=== PATIENT | male | born 1975 | race Two or more races ===

== ENCOUNTER 2023-10-22 17:09 | Inpatient (IN) | payer OTHER, MEDICAID ==
[2023-10-22] VITALS (15 sets, daily range): BP systolic 107–135; BP diastolic 47–74; PULSE 70–93; RESP 18–25; TEMP 99.3–100; O2SAT 95–100
[~2023-10-22] VITALS: Ht 177.8 cm; Wt 102.7 kg
[2023-10-22 17:26] LABS: Basophils # (auto) 0.1 10 ^3/uL (0-0.2); Eosinophils # (auto) 0.1 10 ^3/uL (0-0.8); Lymphocytes # (auto) 1.8 10 ^3/uL (0.4-5.4); Mean Corpuscular Hemoglobin 33.3 pg (28.0-32.0)
[2023-10-22 17:28] LABS: Basophils % (auto) 0.6 % (0.0-2.0); Eosinophils % (auto) 0.7 % (0.0-7.0); Hematocrit 34.6 % (41.0-53.0); Lymphocytes % (auto) 17.1 % (10.0-50.0); Mean Corpuscular Hgb Conc. 31.7 g/dL (32.0-36.0); Monocytes # (auto) 0.9 10 ^3/uL (0-1.3); Monocytes % (auto) 8.8 % (0.0-12.0); Neutrophils # (auto) 7.8 10 ^3/uL (1.6-8.6); Neutrophils % (auto) 72.8 % (37.0-80.0); Nucleated Red Blood Cells % 0.5 %; Red Cell Distribution Width 17.2 % (11.8-14.3); White Blood Cell 10.7 10^3/uL (4.4-10.8)
[2023-10-22 17:51] LABS: Alanine Aminotransferase 542 U/L (7-40); Albumin 3.8 g/dL (3.2-4.8); Alkaline Phosphatase 124 U/L (46-116); Anion Gap 17 (5-15); Aspartate Aminotransferase 425 U/L (13-40); BUN/Creatinine Ratio 4.4 (10.0-20.0); Blood Urea Nitrogen 38 mg/dL (9-23); Calcium 9.6 mg/dL (8.7-10.4); Carbon Dioxide 23 mmol/L (20-30); Chloride 102 mmol/L (98-107); Glucose 90 mg/dL (74-106); Magnesium 2.4 mg/dL (1.6-2.6); Potassium 5.3 mmol/L (3.5-5.1); Sodium 142 mmol/L (136-145)
[2023-10-22 17:52] LABS: Bilirubin, Total 0.5 mg/dL (0.2-1.0); Total Protein 6.9 g/dL (5.7-8.2)
[2023-10-22] MEDS: MIDAZOLAM DRIP 50 mg/50mL 50 ML IV ONE (18:32)
[2023-10-22] MEDS: MIDAZOLAM DRIP 50 mg/50mL 50 ML IV SCH (18:32)
[2023-10-22] MEDS: NOREPINEPHRINE 8 MG/250ML KIT 250 ML IV SCH (18:45)
[2023-10-22] MEDS ORDERED: ONDANSETRON HCL 4 MG/2 ML VIAL IV PRN (18:45)
[2023-10-22 19:46] LABS: Base Excess -3.5 mmol/L (-2.0-2.0)
[2023-10-22 20:21] LABS: Lactic Acid w/Reflex 12.1 mmol/L (0.4-2.0)
[2023-10-22] MEDS ORDERED: D5W 5% IV ONE ×2 (22:00→23:00)
[2023-10-22] MEDS ORDERED: ACETYLCYSTEINE IV ONE ×2 (22:00→23:00)
[2023-10-23] VITALS (116 sets, daily range): BP systolic 117–169; BP diastolic 48–96; PULSE 31–92; RESP 10–29; TEMP 97.5–99.7; O2SAT 94–100
[2023-10-23 01:40] LABS: Alanine Aminotransferase 702 U/L (7-40); Albumin 3.7 g/dL (3.2-4.8); Alkaline Phosphatase 125 U/L (46-116); Anion Gap 8 (5-15); Aspartate Aminotransferase 744 U/L (13-40); BUN/Creatinine Ratio 5.7 (10.0-20.0); Bilirubin, Total 0.4 mg/dL (0.2-1.0); Calcium 9.1 mg/dL (8.7-10.4); Carbon Dioxide 30 mmol/L (20-30); Chloride 104 mmol/L (98-107); Glucose 95 mg/dL (74-106); Potassium 4.1 mmol/L (3.5-5.1); Sodium 142 mmol/L (136-145); Total Protein 6.6 g/dL (5.7-8.2)
[2023-10-23 01:50] LABS: Blood Urea Nitrogen 51 mg/dL (9-23)
[2023-10-23] MEDS: SODIUM CHLOR 0.9% PF (SALINE LOCK) 10ML VIAL/SYR IV SCH (02:29)
[2023-10-23] MEDS ORDERED: D5W 5% IV SCH (03:00)
[2023-10-23] MEDS ORDERED: ACETYLCYSTEINE IV SCH (03:00)
[2023-10-23 03:12] LABS: Basophils # (auto) 0 10 ^3/uL (0-0.2); Basophils % (auto) 0.4 % (0.0-2.0); Eosinophils # (auto) 0 10 ^3/uL (0-0.8); Eosinophils % (auto) 0.1 % (0.0-7.0); Hematocrit 30.6 % (41.0-53.0); Hemoglobin 10.1 g/dL (13.5-17.5); Lymphocytes # (auto) 0.4 10 ^3/uL (0.4-5.4); Lymphocytes % (auto) 4.9 % (10.0-50.0); Mean Corpuscular Hemoglobin 32.7 pg (28.0-32.0); Mean Corpuscular Hgb Conc. 33.1 g/dL (32.0-36.0); Mean Corpuscular Volume 98.9 fL (80.0-100.0); Monocytes # (auto) 0.5 10 ^3/uL (0-1.3); Monocytes % (auto) 6.2 % (0.0-12.0); Neutrophils # (auto) 7.6 10 ^3/uL (1.6-8.6); Neutrophils % (auto) 88.4 % (37.0-80.0); Nucleated Red Blood Cells % 0.1 %; Red Cell Distribution Width 16.4 % (11.8-14.3); White Blood Cell 8.5 10^3/uL (4.4-10.8)
[2023-10-23 03:32] LABS: INR 1.39 (0.9-1.15); Prothrombin Time 14.4 sec (9.3-11.8)
[2023-10-23] MEDS: PANTOPRAZOLE 40 MG/10 ML VIAL INJ IV SCH (07:45)
[2023-10-23 08:04] LABS: Basophils # (auto) 0 10 ^3/uL (0-0.2); Basophils % (auto) 0.4 % (0.0-2.0); Eosinophils # (auto) 0 10 ^3/uL (0-0.8); Hematocrit 31.8 % (41.0-53.0); Hemoglobin 10.5 g/dL (13.5-17.5); Lymphocytes # (auto) 0.4 10 ^3/uL (0.4-5.4); Lymphocytes % (auto) 4.4 % (10.0-50.0); Mean Corpuscular Hemoglobin 32.6 pg (28.0-32.0); Mean Corpuscular Volume 98.6 fL (80.0-100.0); Monocytes # (auto) 0.5 10 ^3/uL (0-1.3); Monocytes % (auto) 5.1 % (0.0-12.0); Neutrophils # (auto) 8.7 10 ^3/uL (1.6-8.6); Neutrophils % (auto) 90.1 % (37.0-80.0); Red Blood Cells 3.23 10^6/uL (4.5-5.90); Red Cell Distribution Width 16.5 % (11.8-14.3); White Blood Cell 9.6 10^3/uL (4.4-10.8)
[2023-10-23 08:22] LABS: Alanine Aminotransferase 598 U/L (7-40); Alkaline Phosphatase 127 U/L (46-116); Anion Gap 11 (5-15); Aspartate Aminotransferase 532 U/L (13-40); BUN/Creatinine Ratio 6.5 (10.0-20.0); Blood Urea Nitrogen 58 mg/dL (9-23); Calcium 8.8 mg/dL (8.5-10.1); Carbon Dioxide 28 mmol/L (20-30); Chloride 103 mmol/L (98-107); Glucose 96 mg/dL (74-106); Potassium 4.4 mmol/L (3.5-5.1); Sodium 142 mmol/L (136-145)
[2023-10-23 08:23] LABS: Albumin 3.8 g/dL (3.2-4.8); Bilirubin, Total 0.5 mg/dL (0.2-1.0); Total Protein 6.8 g/dL (5.7-8.2)
[2023-10-23] MEDS ORDERED: RANO500T3 PO (09:16)
[2023-10-23] MEDS ORDERED: ATOR20TA50 PO (09:16)
[2023-10-23] MEDS ORDERED: CYCL-839 PO (09:16)
[2023-10-23] MEDS ORDERED: CARV6.2517 PO (09:16)
[2023-10-23] MEDS ORDERED: SEVE800T10 PO (09:16)
[2023-10-23] MEDS ORDERED: ASPI-543 PO (09:16)
[2023-10-23] MEDS ORDERED: CHOL20007 PO (09:16)
[2023-10-23] MEDS ORDERED: MORP15TA PO (09:16)
[2023-10-23] MEDS ORDERED: FERR325T24 PO (09:16)
[2023-10-23] MEDS ORDERED: GABA-339 PO (09:16)
[2023-10-23] MEDS ORDERED: NIFE1TAB30 PO (09:16)
[2023-10-23] MEDS ORDERED: GLIP5TAB21 PO (09:16)
[2023-10-23] MEDS ORDERED: CLOP75TA28 PO (09:16)
[2023-10-23] MEDS ORDERED: VANCOMYCIN PER PHARMACY 0 MG IV SCH (10:15)
[2023-10-23] MEDS: ENOXAPARIN SOD 30 MG/0.3 ML SYRINGE SC ONE (10:47)
[2023-10-23] MEDS: FUROSEMIDE 40 MG/4 ML VIAL IV ONE (10:47)
[2023-10-23] MEDS: VANCOMYCIN 1GM/200ML 200 ML IV ONE (10:54)
[2023-10-23] MEDS: fentaNYL Drip 2500mCg/250mlNS 250 ML IV SCH (11:00)
[2023-10-23 11:38] LABS: Amphetamine Screen, Urine Neg (NEGATIVE)
[2023-10-23 11:39] LABS: Barbiturate Scree,Urine Neg (NEGATIVE); Benzodiazephine Screen, Urine Pos (NEGATIVE); Cannabinoid Screen, Urine Neg (NEGATIVE); Cocaine Screen, Urine Neg (NEGATIVE); Opiate Scree,Urine Pos (NEGATIVE); Phencyclidine Screen, Urine Neg (NEGATIVE)
[2023-10-23] MEDS: CEFEPIME 1GM/ 50ML 50 ML IV SCH (13:05)
[2023-10-23] MEDS: PROPOFOL 100 ML IV SCH (14:30)
[2023-10-23] MEDS: hydrALAZINE HCL 20 MG/ML VL IV PRN (14:45)
[2023-10-23 15:57] LABS: Base Excess 3.1 mmol/L (-2.0-2.0)
[2023-10-23] MEDS: VANCOMYCIN 500 MG in D5W 5% 100 ML IV ONE (18:31)
[2023-10-23] MEDS: CLOPIDOGREL BISULFATE 75 MG TAB PO ONE (19:55)
[2023-10-23] MEDS: Nepro With Carb Steady 1 Liter Bottle GT SCH (21:41)
[2023-10-24] VITALS (104 sets, daily range): BP systolic 100–134; BP diastolic 44–77; PULSE 60–77; RESP 10–19; TEMP 97.2–100.2; O2SAT 91–100
[2023-10-24 04:19] LABS: Basophils # (auto) 0.1 10 ^3/uL (0-0.2); Basophils % (auto) 0.7 % (0.0-2.0); Eosinophils # (auto) 0.2 10 ^3/uL (0-0.8); Eosinophils % (auto) 1.8 % (0.0-7.0); Hematocrit 29.4 % (41.0-53.0); Hemoglobin 9.8 g/dL (13.5-17.5); Lymphocytes # (auto) 0.5 10 ^3/uL (0.4-5.4); Lymphocytes % (auto) 6.4 % (10.0-50.0); Mean Corpuscular Hemoglobin 33.1 pg (28.0-32.0); Mean Corpuscular Hgb Conc. 33.4 g/dL (32.0-36.0); Monocytes # (auto) 0.6 10 ^3/uL (0-1.3); Monocytes % (auto) 6.9 % (0.0-12.0); Neutrophils # (auto) 7.2 10 ^3/uL (1.6-8.6); Neutrophils % (auto) 84.2 % (37.0-80.0); Nucleated Red Blood Cells % 0.1 %; Red Blood Cells 2.97 10^6/uL (4.5-5.90); Red Cell Distribution Width 16.1 % (11.8-14.3); White Blood Cell 8.5 10^3/uL (4.4-10.8)
[2023-10-24 04:28] LABS: Alanine Aminotransferase 411 U/L (7-40); Albumin 3.5 g/dL (3.2-4.8); Alkaline Phosphatase 107 U/L (46-116); Anion Gap 12 (5-15); Aspartate Aminotransferase 125 U/L (13-40); BUN/Creatinine Ratio 6.7 (10.0-20.0); Bilirubin, Total 0.5 mg/dL (0.2-1.0); Blood Urea Nitrogen 51 mg/dL (9-23); Calcium 8.5 mg/dL (8.7-10.4); Carbon Dioxide 27 mmol/L (20-30); Chloride 101 mmol/L (98-107); Glucose 63 mg/dL (74-106); Magnesium 2.2 mg/dL (1.6-2.6); Potassium 3.3 mmol/L (3.5-5.1); Sodium 140 mmol/L (136-145); Total Protein 6.3 g/dL (5.7-8.2)
[2023-10-24 07:32] LABS: Base Excess 0.7 mmol/L (-2.0-2.0)
[2023-10-24] MEDS: CLOPIDOGREL BISULFATE 75 MG TAB PO SCH (10:00)
[2023-10-24] MEDS: ENOXAPARIN SOD 30 MG/0.3 ML SYRINGE SC SCH (10:25)
[2023-10-24] MEDS: FUROSEMIDE 40 MG/4 ML VIAL IV SCH (10:25)
[2023-10-24] MEDS: DEXTROSE (50%) 50ML SYRG IV ONE (12:29)
[2023-10-24] MEDS: DEXTROSE 50% SYRINGE 50 ML IV ONE (12:29)
[2023-10-24] MEDS ORDERED: D5W 5% 1,000 ML IV SCH (12:30)
[2023-10-24] MEDS ORDERED: DEXTROSE (50%) 50ML SYRG IV PRN (12:30)
[2023-10-24] MEDS ORDERED: EPINEPHrine HCL 1 MG/10 ML SYRG IV ONE (13:06)
[2023-10-24] MEDS: POTASSIUM CHL 20MEQ/100ML 100 ML IV ONE (13:54)
[2023-10-24] MEDS ORDERED: GABA-1250 PO (16:06)
[2023-10-24] MEDS ORDERED: ATOR-507 PO (16:06)
[2023-10-24] MEDS ORDERED: CARV12.544 PO (16:06)
[2023-10-24] MEDS ORDERED: CALC667C PO (16:13)
[2023-10-24] MEDS ORDERED: PANT40TA2 PO (16:13)
[2023-10-24] MEDS ORDERED: ALBU1.258 NEB (16:13)
[2023-10-24] MEDS ORDERED: HYDR50TA47 PO (16:13)
[2023-10-24] MEDS ORDERED: NITR0.4S29 SL (16:13)
[2023-10-24] MEDS ORDERED: SUCR1TAB31 PO (16:13)
[2023-10-24] MEDS: InsuLIN REG 1unit/0.01ml Soln (100units/ml) SC SCH (18:00)
[2023-10-24] MEDS ORDERED: D5W/SOD CHLO 0.9% 1,000 ML IV SCH (18:30)
[2023-10-24] MEDS: D5W/SOD CHLO 0.9% 1,000 ML IV SCH (18:30)
[2023-10-24] MEDS: ACCU-CHEK COMFORT CURVE STRIP VI SCH (20:08)
[2023-10-25] VITALS (106 sets, daily range): BP systolic 101–146; BP diastolic 39–79; PULSE 58–92; RESP 8–20; TEMP 97–98.4; O2SAT 78–100
[2023-10-25 04:36] LABS: Basophils # (auto) 0 10 ^3/uL (0-0.2); Basophils % (auto) 0.6 % (0.0-2.0); Eosinophils # (auto) 0.4 10 ^3/uL (0-0.8); Eosinophils % (auto) 7.2 % (0.0-7.0); Hematocrit 27.7 % (41.0-53.0); Hemoglobin 9.2 g/dL (13.5-17.5); Lymphocytes # (auto) 0.5 10 ^3/uL (0.4-5.4); Lymphocytes % (auto) 7.3 % (10.0-50.0); Mean Corpuscular Hgb Conc. 33.1 g/dL (32.0-36.0); Mean Corpuscular Volume 99.7 fL (80.0-100.0); Monocytes # (auto) 0.5 10 ^3/uL (0-1.3); Monocytes % (auto) 8.6 % (0.0-12.0); Neutrophils # (auto) 4.7 10 ^3/uL (1.6-8.6); Neutrophils % (auto) 76.3 % (37.0-80.0); Nucleated Red Blood Cells % 0.1 %; Red Blood Cells 2.78 10^6/uL (4.5-5.90); Red Cell Distribution Width 16.5 % (11.8-14.3); White Blood Cell 6.2 10^3/uL (4.4-10.8)
[2023-10-25 04:47] LABS: Anion Gap 11 (5-15); Carbon Dioxide 26 mmol/L (20-30); Chloride 103 mmol/L (98-107); Potassium 3.7 mmol/L (3.5-5.1); Sodium 140 mmol/L (136-145)
[2023-10-25 04:49] LABS: Calcium 8.1 mg/dL (8.5-10.1)
[2023-10-25 04:53] LABS: BUN/Creatinine Ratio 7.8 (10.0-20.0); Glucose 72 mg/dL (74-106)
[2023-10-25 04:55] LABS: % Iron Saturation 17.6 % (20-55)
[2023-10-25 04:58] LABS: Blood Urea Nitrogen 66 mg/dL (9-23)
[2023-10-25] MEDS: SODIUM CHL 0.9% 1000 ML BAG XX ONE (07:00)
[2023-10-25 09:53] LABS: Base Excess 4.1 mmol/L (-2.0-2.0)
[2023-10-25] MEDS ORDERED: ALBUMIN 25% 100 ML IV SCH (13:00)
[2023-10-25] MEDS: PANTOPRAZOLE 40 MG/10 ML VIAL INJ IV SCH (21:34)
[2023-10-26] VITALS (106 sets, daily range): BP systolic 110–169; BP diastolic 43–77; PULSE 59–82; RESP 9–29; TEMP 97–98.1; O2SAT 93–100
[2023-10-26 04:13] LABS: Basophils # (auto) 0 10 ^3/uL (0-0.2); Basophils % (auto) 0.7 % (0.0-2.0); Eosinophils # (auto) 0.4 10 ^3/uL (0-0.8); Eosinophils % (auto) 7.9 % (0.0-7.0); Hematocrit 27.9 % (41.0-53.0); Hemoglobin 9.3 g/dL (13.5-17.5); Lymphocytes # (auto) 0.3 10 ^3/uL (0.4-5.4); Lymphocytes % (auto) 5.1 % (10.0-50.0); Mean Corpuscular Hgb Conc. 33.4 g/dL (32.0-36.0); Mean Corpuscular Volume 98.9 fL (80.0-100.0); Monocytes # (auto) 0.6 10 ^3/uL (0-1.3); Monocytes % (auto) 10.6 % (0.0-12.0); Neutrophils # (auto) 4.2 10 ^3/uL (1.6-8.6); Neutrophils % (auto) 75.7 % (37.0-80.0); Nucleated Red Blood Cells % 0.1 %; Red Blood Cells 2.82 10^6/uL (4.5-5.90); Red Cell Distribution Width 16.3 % (11.8-14.3); White Blood Cell 5.5 10^3/uL (4.4-10.8)
[2023-10-26 04:30] LABS: Alanine Aminotransferase 172 U/L (7-40); Albumin 3.2 g/dL (3.2-4.8); Alkaline Phosphatase 108 U/L (46-116); Anion Gap 6 (5-15); Aspartate Aminotransferase 41 U/L (13-40); BUN/Creatinine Ratio 6.6 (10.0-20.0); Calcium 8.4 mg/dL (8.5-10.1); Carbon Dioxide 28 mmol/L (20-30); Chloride 107 mmol/L (98-107); Glucose 121 mg/dL (74-106); Potassium 3.9 mmol/L (3.5-5.1); Sodium 141 mmol/L (136-145)
[2023-10-26 04:31] LABS: Bilirubin, Total 0.3 mg/dL (0.2-1.0)
[2023-10-26 04:39] LABS: Blood Urea Nitrogen 41 mg/dL (9-23)
[2023-10-26 08:11] LABS: Base Excess 1.4 mmol/L (-2.0-2.0)
[2023-10-26 09:34] LABS: Hepatitis B Core Total AB Negative (Negative)
[2023-10-26 11:13] LABS: Hepatitis A Total Antibody Positive (Negative); Hepatitis B Surface Antibody Positive (Negative); Hepatitis B Surface Antigen Negative (Negative)
[2023-10-26 11:14] LABS: Hepatitis C Antibody Negative (Negative)
[2023-10-26] MEDS ORDERED: VANCOMYCIN PER PHARMACY 0 MG IV SCH (19:15)
[2023-10-26] MEDS: VANCOMYCIN 1GM/200ML 200 ML IV ONE (20:01)
[2023-10-26] MEDS: D5W 5% IV ONE (21:28)
[2023-10-26] MEDS: CEFTOLOZANE TAZOB IV ONE (21:28)
[2023-10-27] VITALS (103 sets, daily range): BP systolic 104–160; BP diastolic 48–76; PULSE 71–90; RESP 13–42; TEMP 97.3–99.1; O2SAT 90–100
[2023-10-27 04:26] LABS: Basophils # (auto) 0 10 ^3/uL (0-0.2); Basophils % (auto) 0.3 % (0.0-2.0); Eosinophils # (auto) 0.2 10 ^3/uL (0-0.8); Eosinophils % (auto) 5.1 % (0.0-7.0); Hematocrit 29.4 % (41.0-53.0); Hemoglobin 9.9 g/dL (13.5-17.5); Lymphocytes # (auto) 0.1 10 ^3/uL (0.4-5.4); Lymphocytes % (auto) 3.3 % (10.0-50.0); Mean Corpuscular Hemoglobin 33.3 pg (28.0-32.0); Mean Corpuscular Hgb Conc. 33.6 g/dL (32.0-36.0); Monocytes # (auto) 0.3 10 ^3/uL (0-1.3); Monocytes % (auto) 6.5 % (0.0-12.0); Neutrophils # (auto) 3.6 10 ^3/uL (1.6-8.6); Neutrophils % (auto) 84.8 % (37.0-80.0); Nucleated Red Blood Cells % 0.1 %; Red Blood Cells 2.96 10^6/uL (4.5-5.90); Red Cell Distribution Width 16.9 % (11.8-14.3); White Blood Cell 4.2 10^3/uL (4.4-10.8)
[2023-10-27 04:41] LABS: Alanine Aminotransferase 117 U/L (7-40); Alkaline Phosphatase 121 U/L (46-116); Anion Gap 8 (5-15); BUN/Creatinine Ratio 6.8 (10.0-20.0); Blood Urea Nitrogen 49 mg/dL (9-23); Calcium 8.4 mg/dL (8.5-10.1); Carbon Dioxide 26 mmol/L (20-30); Chloride 108 mmol/L (98-107); Glucose 90 mg/dL (74-106); Potassium 3.6 mmol/L (3.5-5.1); Sodium 142 mmol/L (136-145)
[2023-10-27 04:42] LABS: Albumin 3.1 g/dL (3.2-4.8); Aspartate Aminotransferase 33 U/L (13-40)
[2023-10-27 04:43] LABS: Bilirubin, Total 0.3 mg/dL (0.2-1.0)
[2023-10-27] MEDS: D5W 5% IV SCH ×2 (05:51→17:16)
[2023-10-27] MEDS: CEFTOLOZANE TAZOB IV SCH ×2 (05:51→17:16)
[2023-10-27] MEDS: SODIUM CHL 0.9% 1000 ML BAG XX ONE (06:45)
[2023-10-27 07:35] LABS: Base Excess -0.7 mmol/L (-2.0-2.0)
[2023-10-27] MEDS: HEPARIN SODIUM (PORCINE) 5000 UNITS/ML 1ML VIAL SC SCH (10:00)
[2023-10-27] MEDS: VANCOMYCIN 500 MG in D5W 5% 100 ML IV ONE (17:53)
[2023-10-28] VITALS (108 sets, daily range): BP systolic 106–191; BP diastolic 31–97; PULSE 69–101; RESP 16–29; TEMP 97.2–99.7; O2SAT 92–100
[2023-10-28 04:27] LABS: Basophils # (auto) 0 10 ^3/uL (0-0.2); Basophils % (auto) 0.6 % (0.0-2.0); Eosinophils # (auto) 0.5 10 ^3/uL (0-0.8); Eosinophils % (auto) 7.8 % (0.0-7.0); Hematocrit 27.6 % (41.0-53.0); Hemoglobin 9.2 g/dL (13.5-17.5); Lymphocytes # (auto) 0.3 10 ^3/uL (0.4-5.4); Lymphocytes % (auto) 5.3 % (10.0-50.0); Mean Corpuscular Hemoglobin 32.6 pg (28.0-32.0); Mean Corpuscular Hgb Conc. 33.2 g/dL (32.0-36.0); Mean Corpuscular Volume 98.1 fL (80.0-100.0); Monocytes # (auto) 0.6 10 ^3/uL (0-1.3); Monocytes % (auto) 9.3 % (0.0-12.0); Neutrophils # (auto) 4.7 10 ^3/uL (1.6-8.6); Nucleated Red Blood Cells % 0.1 %; Red Blood Cells 2.81 10^6/uL (4.5-5.90); Red Cell Distribution Width 16.4 % (11.8-14.3); White Blood Cell 6.1 10^3/uL (4.4-10.8)
[2023-10-28 04:36] LABS: Anion Gap 6 (5-15); Calcium 8.6 mg/dL (8.5-10.1); Carbon Dioxide 30 mmol/L (20-30); Chloride 105 mmol/L (98-107); Potassium 3.6 mmol/L (3.5-5.1); Sodium 141 mmol/L (136-145)
[2023-10-28 04:42] LABS: BUN/Creatinine Ratio 6.9 (10.0-20.0); Blood Urea Nitrogen 42 mg/dL (9-23); Glucose 136 mg/dL (74-106)
[2023-10-28] MEDS: HYDROmorphone HCL 2 MG/ML VL/or syr IV PRN (12:13)
[2023-10-28] MEDS: CARVEDILOL 12.5 MG TAB PO SCH (17:10)
[2023-10-29] VITALS (78 sets, daily range): BP systolic 118–202; BP diastolic 48–86; PULSE 68–88; RESP 14–28; TEMP 97.3–98.8; O2SAT 65–100
[2023-10-29 04:13] LABS: Alanine Aminotransferase 62 U/L (7-40); Albumin 3.2 g/dL (3.2-4.8); Alkaline Phosphatase 124 U/L (46-116); Anion Gap 10 (5-15); Aspartate Aminotransferase 35 U/L (13-40); BUN/Creatinine Ratio 7.7 (10.0-20.0); Basophils # (auto) 0.1 10 ^3/uL (0-0.2); Basophils % (auto) 0.7 % (0.0-2.0); Bilirubin, Total 0.2 mg/dL (0.2-1.0); Carbon Dioxide 27 mmol/L (20-30); Chloride 103 mmol/L (98-107); Eosinophils # (auto) 0.5 10 ^3/uL (0-0.8); Eosinophils % (auto) 7.1 % (0.0-7.0); Glucose 130 mg/dL (74-106); Hematocrit 29.7 % (41.0-53.0); Hemoglobin 9.8 g/dL (13.5-17.5); Lymphocytes # (auto) 0.5 10 ^3/uL (0.4-5.4); Lymphocytes % (auto) 6.1 % (10.0-50.0); Mean Corpuscular Hemoglobin 32.5 pg (28.0-32.0); Mean Corpuscular Hgb Conc. 32.8 g/dL (32.0-36.0); Monocytes # (auto) 0.6 10 ^3/uL (0-1.3); Monocytes % (auto) 8.3 % (0.0-12.0); Neutrophils # (auto) 5.8 10 ^3/uL (1.6-8.6); Neutrophils % (auto) 77.8 % (37.0-80.0); Nucleated Red Blood Cells % 0.1 %; Potassium 3.8 mmol/L (3.5-5.1); Red Cell Distribution Width 16.6 % (11.8-14.3); Sodium 140 mmol/L (136-145); Total Protein 6.3 g/dL (5.7-8.2); White Blood Cell 7.5 10^3/uL (4.4-10.8)
[2023-10-29 04:23] LABS: Blood Urea Nitrogen 57 mg/dL (9-23)
[2023-10-29 07:01] LABS: Base Excess 2.2 mmol/L (-2.0-2.0)
[2023-10-29] MEDS ORDERED: NIFEdipine 10 MG CAP PO ONE (16:00)
[2023-10-29] MEDS: NIFEdipine 10 MG CAP PO ONE (16:30)
[2023-10-29] MEDS: ARTIFICIAL TEARS 15ml EACHEYE PRN (17:34)
[2023-10-29] MEDS: NIFEdipine 10 MG CAP PO SCH (22:29)
[2023-10-30] VITALS (90 sets, daily range): BP systolic 117–175; BP diastolic 59–86; PULSE 67–81; RESP 11–27; TEMP 96.4–98.8; O2SAT 96–100
[2023-10-30] MEDS ORDERED: PROPOFOL 100 ML IV SCH (00:15)
[2023-10-30] MEDS: hydrALAZINE HCL 20 MG/ML VL IV PRN (02:12)
[2023-10-30 04:05] LABS: Basophils # (auto) 0.1 10 ^3/uL (0-0.2); Basophils % (auto) 0.6 % (0.0-2.0); Eosinophils # (auto) 0.8 10 ^3/uL (0-0.8); Eosinophils % (auto) 9.2 % (0.0-7.0); Hematocrit 31.2 % (41.0-53.0); Hemoglobin 10.3 g/dL (13.5-17.5); Lymphocytes # (auto) 0.6 10 ^3/uL (0.4-5.4); Lymphocytes % (auto) 6.9 % (10.0-50.0); Mean Corpuscular Hemoglobin 32.5 pg (28.0-32.0); Mean Corpuscular Hgb Conc. 33.1 g/dL (32.0-36.0); Mean Corpuscular Volume 98.3 fL (80.0-100.0); Monocytes # (auto) 0.7 10 ^3/uL (0-1.3); Monocytes % (auto) 8.7 % (0.0-12.0); Neutrophils # (auto) 6.4 10 ^3/uL (1.6-8.6); Neutrophils % (auto) 74.6 % (37.0-80.0); Red Blood Cells 3.18 10^6/uL (4.5-5.90); Red Cell Distribution Width 16.1 % (11.8-14.3); White Blood Cell 8.5 10^3/uL (4.4-10.8)
[2023-10-30 04:17] LABS: Alanine Aminotransferase 53 U/L (7-40); Albumin 3.3 g/dL (3.2-4.8); Alkaline Phosphatase 138 U/L (46-116); Anion Gap 11 (5-15); Aspartate Aminotransferase 38 U/L (13-40); BUN/Creatinine Ratio 8.5 (10.0-20.0); Bilirubin, Total 0.2 mg/dL (0.2-1.0); Calcium 9.3 mg/dL (8.5-10.1); Carbon Dioxide 27 mmol/L (20-30); Chloride 102 mmol/L (98-107); Glucose 130 mg/dL (74-106); Sodium 140 mmol/L (136-145); Total Protein 6.5 g/dL (5.7-8.2)
[2023-10-30 04:25] LABS: Blood Urea Nitrogen 70 mg/dL (9-23)
[2023-10-30] MEDS: SODIUM CHL 0.9% 1000 ML BAG XX ONE (07:00)
[2023-10-30 07:21] LABS: Base Excess 0.2 mmol/L (-2.0-2.0)
[2023-10-30] MEDS: NIFEdipine ER 30 MG TAB PO SCH (10:00)
[2023-10-30] MEDS ORDERED: NIFEdipine 10 MG CAP PO SCH (10:00)
[2023-10-30] MEDS: NIFEdipine 10 MG CAP PO SCH (22:00)
[2023-10-30] MEDS ORDERED: NIFEdipine ER 30 MG TAB PO SCH ×2 (22:00)
[2023-10-31] VITALS (104 sets, daily range): BP systolic 116–177; BP diastolic 59–112; PULSE 68–81; RESP 16–35; TEMP 97.3–99.3; O2SAT 95–100
[2023-10-31 04:02] LABS: Basophils # (auto) 0.1 10 ^3/uL (0-0.2); Basophils % (auto) 0.8 % (0.0-2.0); Eosinophils # (auto) 0.8 10 ^3/uL (0-0.8); Eosinophils % (auto) 9.4 % (0.0-7.0); Hemoglobin 10.3 g/dL (13.5-17.5); Lymphocytes # (auto) 0.6 10 ^3/uL (0.4-5.4); Lymphocytes % (auto) 6.7 % (10.0-50.0); Mean Corpuscular Hemoglobin 32.2 pg (28.0-32.0); Mean Corpuscular Hgb Conc. 33.2 g/dL (32.0-36.0); Mean Corpuscular Volume 96.9 fL (80.0-100.0); Monocytes # (auto) 0.6 10 ^3/uL (0-1.3); Monocytes % (auto) 6.3 % (0.0-12.0); Neutrophils # (auto) 6.7 10 ^3/uL (1.6-8.6); Neutrophils % (auto) 76.8 % (37.0-80.0); Red Cell Distribution Width 16.3 % (11.8-14.3); White Blood Cell 8.8 10^3/uL (4.4-10.8)
[2023-10-31 04:25] LABS: Alanine Aminotransferase 50 U/L (7-40); Albumin 3.3 g/dL (3.2-4.8); Alkaline Phosphatase 138 U/L (46-116); Anion Gap 10 (5-15); Aspartate Aminotransferase 38 U/L (13-40); BUN/Creatinine Ratio 7.3 (10.0-20.0); Calcium 9.3 mg/dL (8.7-10.4); Carbon Dioxide 28 mmol/L (20-30); Chloride 100 mmol/L (98-107); Glucose 152 mg/dL (74-106); Potassium 4.1 mmol/L (3.5-5.1); Sodium 138 mmol/L (136-145)
[2023-10-31 04:26] LABS: Bilirubin, Total < 0.2 mg/dL (0.2-1.0); Total Protein 6.6 g/dL (5.7-8.2)
[2023-10-31 04:31] LABS: Blood Urea Nitrogen 45 mg/dL (9-23)
[2023-10-31 07:03] LABS: Base Excess 4.1 mmol/L (-2.0-2.0)
[2023-11-01] VITALS (115 sets, daily range): BP systolic 116–196; BP diastolic 39–75; PULSE 67–95; RESP 8–31; TEMP 97.7–99.3; O2SAT 95–100
[2023-11-01 04:23] LABS: Basophils # (auto) 0.1 10 ^3/uL (0-0.2); Basophils % (auto) 0.7 % (0.0-2.0); Eosinophils # (auto) 0.8 10 ^3/uL (0-0.8); Eosinophils % (auto) 8.5 % (0.0-7.0); Hematocrit 30.7 % (41.0-53.0); Hemoglobin 10.2 g/dL (13.5-17.5); Lymphocytes # (auto) 0.8 10 ^3/uL (0.4-5.4); Lymphocytes % (auto) 7.9 % (10.0-50.0); Mean Corpuscular Hemoglobin 32.4 pg (28.0-32.0); Mean Corpuscular Hgb Conc. 33.2 g/dL (32.0-36.0); Mean Corpuscular Volume 97.7 fL (80.0-100.0); Monocytes # (auto) 0.7 10 ^3/uL (0-1.3); Monocytes % (auto) 7.2 % (0.0-12.0); Neutrophils # (auto) 7.5 10 ^3/uL (1.6-8.6); Neutrophils % (auto) 75.7 % (37.0-80.0); Red Blood Cells 3.14 10^6/uL (4.5-5.90); Red Cell Distribution Width 16.5 % (11.8-14.3); White Blood Cell 9.9 10^3/uL (4.4-10.8)
[2023-11-01 04:33] LABS: Alanine Aminotransferase 48 U/L (7-40); Albumin 3.2 g/dL (3.2-4.8); Alkaline Phosphatase 140 U/L (46-116); Anion Gap 11 (5-15); Aspartate Aminotransferase 38 U/L (13-40); Calcium 9.3 mg/dL (8.7-10.4); Carbon Dioxide 27 mmol/L (20-30); Chloride 100 mmol/L (98-107); Glucose 111 mg/dL (74-106); Potassium 4.4 mmol/L (3.5-5.1); Sodium 138 mmol/L (136-145)
[2023-11-01 04:34] LABS: Bilirubin, Total < 0.2 mg/dL (0.2-1.0); Total Protein 6.6 g/dL (5.7-8.2)
[2023-11-01 04:37] LABS: Blood Urea Nitrogen 59 mg/dL (9-23)
[2023-11-01 09:10] LABS: Base Excess 3.8 mmol/L (-2.0-2.0)
[2023-11-01] MEDS: hydrALAZINE HCL 20 MG/ML VL IV PRN ×2 (20:04→23:57)
[2023-11-02] VITALS (105 sets, daily range): BP systolic 97–189; BP diastolic 42–84; PULSE 65–92; RESP 15–26; TEMP 97–98.8; O2SAT 98–100
[2023-11-02] MEDS ORDERED: LABETALOL HCL 5 MG/ML 4ML SYRINGE IV PRN ×3 (01:15)
[2023-11-02 04:13] LABS: Basophils # (auto) 0.1 10 ^3/uL (0-0.2); Basophils % (auto) 0.8 % (0.0-2.0); Eosinophils # (auto) 0.8 10 ^3/uL (0-0.8); Eosinophils % (auto) 6.7 % (0.0-7.0); Hematocrit 32.3 % (41.0-53.0); Hemoglobin 10.6 g/dL (13.5-17.5); Lymphocytes # (auto) 0.6 10 ^3/uL (0.4-5.4); Mean Corpuscular Hgb Conc. 32.7 g/dL (32.0-36.0); Mean Corpuscular Volume 97.8 fL (80.0-100.0); Monocytes # (auto) 0.6 10 ^3/uL (0-1.3); Monocytes % (auto) 4.9 % (0.0-12.0); Neutrophils # (auto) 10.4 10 ^3/uL (1.6-8.6); Neutrophils % (auto) 82.6 % (37.0-80.0); Red Blood Cells 3.31 10^6/uL (4.5-5.90); White Blood Cell 12.6 10^3/uL (4.4-10.8)
[2023-11-02 04:20] LABS: Alanine Aminotransferase 48 U/L (7-40); Albumin 3.4 g/dL (3.2-4.8); Alkaline Phosphatase 149 U/L (46-116); Anion Gap 9 (5-15); Aspartate Aminotransferase 43 U/L (13-40); BUN/Creatinine Ratio 6.9 (10.0-20.0); Calcium 9.5 mg/dL (8.7-10.4); Carbon Dioxide 27 mmol/L (20-30); Chloride 101 mmol/L (98-107); Glucose 126 mg/dL (74-106); Potassium 4.7 mmol/L (3.5-5.1); Sodium 137 mmol/L (136-145)
[2023-11-02 04:21] LABS: Bilirubin, Total < 0.2 mg/dL (0.2-1.0); Total Protein 6.9 g/dL (5.7-8.2)
[2023-11-02] MEDS: LABETALOL HCL 5 MG/ML 4ML SYRINGE IV PRN (04:29)
[2023-11-02 04:42] LABS: Blood Urea Nitrogen 40 mg/dL (9-23)
[2023-11-02 07:37] LABS: Base Excess 4.5 mmol/L (-2.0-2.0)
[2023-11-03] VITALS (105 sets, daily range): BP systolic 118–174; BP diastolic 44–78; PULSE 65–81; RESP 14–23; TEMP 96.8–99; O2SAT 95–100
[2023-11-03 04:31] LABS: Alanine Aminotransferase 48 U/L (7-40); Albumin 3.4 g/dL (3.2-4.8); Alkaline Phosphatase 151 U/L (46-116); Anion Gap 14 (5-15); BUN/Creatinine Ratio 8.3 (10.0-20.0); Calcium 9.3 mg/dL (8.7-10.4); Carbon Dioxide 26 mmol/L (20-30); Chloride 97 mmol/L (98-107); Glucose 109 mg/dL (74-106); Potassium 5.2 mmol/L (3.5-5.1); Sodium 137 mmol/L (136-145)
[2023-11-03 04:32] LABS: Aspartate Aminotransferase 40 U/L (13-40); Bilirubin, Total < 0.2 mg/dL (0.2-1.0); Total Protein 6.9 g/dL (5.7-8.2)
[2023-11-03 04:41] LABS: Basophils # (auto) 0.1 10 ^3/uL (0-0.2); Basophils % (auto) 0.9 % (0.0-2.0); Eosinophils # (auto) 0.9 10 ^3/uL (0-0.8); Eosinophils % (auto) 8.4 % (0.0-7.0); Hematocrit 31.8 % (41.0-53.0); Hemoglobin 10.6 g/dL (13.5-17.5); Lymphocytes # (auto) 0.8 10 ^3/uL (0.4-5.4); Lymphocytes % (auto) 7.7 % (10.0-50.0); Mean Corpuscular Hemoglobin 32.7 pg (28.0-32.0); Mean Corpuscular Hgb Conc. 33.4 g/dL (32.0-36.0); Mean Corpuscular Volume 97.9 fL (80.0-100.0); Monocytes # (auto) 0.6 10 ^3/uL (0-1.3); Monocytes % (auto) 5.9 % (0.0-12.0); Neutrophils # (auto) 8.4 10 ^3/uL (1.6-8.6); Neutrophils % (auto) 77.1 % (37.0-80.0); Red Blood Cells 3.25 10^6/uL (4.5-5.90); Red Cell Distribution Width 16.1 % (11.8-14.3); White Blood Cell 10.9 10^3/uL (4.4-10.8)
[2023-11-03 04:52] LABS: Blood Urea Nitrogen 57 mg/dL (9-23)
[2023-11-03 09:01] LABS: Base Excess 2.6 mmol/L (-2.0-2.0)
[2023-11-03 21:54] LABS: Basophils # (auto) 0.1 10 ^3/uL (0-0.2); Basophils % (auto) 1.3 % (0.0-2.0); Eosinophils # (auto) 0.9 10 ^3/uL (0-0.8); Eosinophils % (auto) 9.1 % (0.0-7.0); Hemoglobin 10.4 g/dL (13.5-17.5); Lymphocytes # (auto) 0.7 10 ^3/uL (0.4-5.4); Lymphocytes % (auto) 6.8 % (10.0-50.0); Mean Corpuscular Hemoglobin 32.1 pg (28.0-32.0); Mean Corpuscular Hgb Conc. 33.4 g/dL (32.0-36.0); Mean Corpuscular Volume 96.1 fL (80.0-100.0); Monocytes # (auto) 0.6 10 ^3/uL (0-1.3); Neutrophils # (auto) 7.9 10 ^3/uL (1.6-8.6); Neutrophils % (auto) 76.8 % (37.0-80.0); Red Blood Cells 3.23 10^6/uL (4.5-5.90); Red Cell Distribution Width 16.1 % (11.8-14.3); White Blood Cell 10.3 10^3/uL (4.4-10.8)
[2023-11-03] MEDS: ACCU-CHEK COMFORT CURVE STRIP VI SCH (22:00)
[2023-11-03 22:11] LABS: Base Excess 7.9 mmol/L (-2.0-2.0)
[2023-11-03 22:12] LABS: Magnesium 2.3 mg/dL (1.6-2.6)
[2023-11-03 22:13] LABS: Bilirubin, Direct 0.1 mg/dL (<0.3); Phosphorus 6.3 mg/dL (2.4-5.1)
[2023-11-03 22:26] LABS: INR 1.08 (0.9-1.15); Partial Thromboplastin Time 27.9 SEC (24.5-34.5); Prothrombin Time 11.4 sec (9.3-11.8)
[2023-11-04] VITALS (107 sets, daily range): BP systolic 0–220; BP diastolic 0–201; PULSE 0–96; RESP 0–34; TEMP 95.2–98.4; O2SAT 30–100
[2023-11-04 00:34] LABS: Basophils % (manual) 0 (0.0-2.0); Blast Cells 0; Promyelocytes % 0; Reactive Lymphocytes 0
[2023-11-04 00:58] LABS: INR 1.09 (0.9-1.15); Partial Thromboplastin Time 28.3 SEC (24.5-34.5); Prothrombin Time 11.5 sec (9.3-11.8)
[2023-11-04 01:00] LABS: Alanine Aminotransferase 47 U/L (7-40); Alkaline Phosphatase 141 U/L (46-116); Calcium 9.4 mg/dL (8.7-10.4); Carbon Dioxide 29 mmol/L (20-30); Chloride 96 mmol/L (98-107); Glucose 133 mg/dL (74-106); Potassium 4.5 mmol/L (3.5-5.1)
[2023-11-04 01:01] LABS: Albumin 3.6 g/dL (3.2-4.8); Anion Gap 12 (5-15); Aspartate Aminotransferase 41 U/L (13-40); BUN/Creatinine Ratio 7.4 (10.0-20.0); Bilirubin, Total 0.2 mg/dL (0.2-1.0); Creatine Kinase IFCC 113 U/L (46-171); Magnesium 2.3 mg/dL (1.6-2.6); Phosphorus 6.3 mg/dL (2.4-5.1); Sodium 137 mmol/L (136-145); Total Protein 7.3 g/dL (5.7-8.2)
[2023-11-04 01:06] LABS: Blood Urea Nitrogen 44 mg/dL (9-23)
[2023-11-04 01:39] LABS: Bilirubin, Direct 0.1 mg/dL (<0.3)
[2023-11-04 02:19] LABS: Band Neutrophils % (manual) 1; Eosinophils % (manual) 9 (0-7); Lymphocytes % (manual) 13 (10.0-50.0); Metamyelocytes % 1; Monocytes % (manual) 4 (0-12); Myelocytes % 1
[2023-11-04 02:21] LABS: Platelet Estimate Adequate
[2023-11-04] MEDS: ACCU-CHEK COMFORT CURVE STRIP VI SCH (02:45)
[2023-11-04 04:29] LABS: Base Excess 8.1 mmol/L (-2.0-2.0)
[2023-11-04] MEDS: INSULIN LISPRO (HUMAN) 100 UNITS/ML ML SC SCH (05:52)
[2023-11-04 06:09] LABS: Basophils % (manual) 0 (0.0-2.0); Blast Cells 0; Metamyelocytes % 0; Myelocytes % 0; Promyelocytes % 0; Reactive Lymphocytes 0
[2023-11-04 06:43] LABS: Alanine Aminotransferase 45 U/L (7-40); Albumin 3.5 g/dL (3.2-4.8); Alkaline Phosphatase 145 U/L (46-116); Anion Gap 7 (5-15); Aspartate Aminotransferase 44 U/L (13-40); BUN/Creatinine Ratio 7.2 (10.0-20.0); Bilirubin, Direct 0.1 mg/dL (<0.3); Bilirubin, Total 0.2 mg/dL (0.2-1.0); Blood Urea Nitrogen 44 mg/dL (9-23); Carbon Dioxide 32 mmol/L (20-30); Chloride 97 mmol/L (98-107); Creatine Kinase IFCC 130 U/L (46-171); Glucose 142 mg/dL (74-106); Magnesium 2.3 mg/dL (1.6-2.6); Potassium 4.5 mmol/L (3.5-5.1); Sodium 136 mmol/L (136-145); Total Protein 6.9 g/dL (5.7-8.2)
[2023-11-04] MEDS ORDERED: INSULIN LISPRO (HUMAN) 100 UNITS/ML ML SC SCH (07:00)
[2023-11-04 07:44] LABS: INR 1.09 (0.9-1.15); Partial Thromboplastin Time 28.6 SEC (24.5-34.5); Prothrombin Time 11.5 sec (9.3-11.8)
[2023-11-04 07:49] LABS: Nucleated Red Blood Cells % 0.1 %
[2023-11-04 10:09] LABS: Base Excess 4.3 mmol/L (-2.0-2.0)
[2023-11-04 11:59] LABS: Basophils % (manual) 0 (0.0-2.0); Blast Cells 0; Metamyelocytes % 0; Myelocytes % 0; Promyelocytes % 0; Reactive Lymphocytes 0
[2023-11-04 12:05] LABS: Platelet Estimate Adequate
[2023-11-04 12:09] LABS: Band Neutrophils % (manual) 1; Eosinophils % (manual) 6 (0-7); Lymphocytes % (manual) 5 (10.0-50.0); Monocytes % (manual) 2 (0-12)
[2023-11-04 12:30] LABS: Alanine Aminotransferase 46 U/L (7-40); Albumin 3.3 g/dL (3.2-4.8); Alkaline Phosphatase 133 U/L (46-116); Anion Gap 7 (5-15); Aspartate Aminotransferase 45 U/L (13-40); BUN/Creatinine Ratio 8.2 (10.0-20.0); Blood Urea Nitrogen 52 mg/dL (9-23); Calcium 8.8 mg/dL (8.5-10.1); Carbon Dioxide 33 mmol/L (20-30); Chloride 97 mmol/L (98-107); Glucose 82 mg/dL (74-106); Magnesium 2.2 mg/dL (1.6-2.6); Potassium 4.6 mmol/L (3.5-5.1); Sodium 137 mmol/L (136-145)
[2023-11-04 12:31] LABS: Bilirubin, Direct 0.1 mg/dL (<0.3); Bilirubin, Total 0.2 mg/dL (0.2-1.0); Creatine Kinase IFCC 111 U/L (46-171); Phosphorus 7.8 mg/dL (2.4-5.1); Total Protein 6.5 g/dL (5.7-8.2)
[2023-11-04 12:40] LABS: INR 1.1 (0.9-1.15); Partial Thromboplastin Time 28.5 SEC (24.5-34.5); Prothrombin Time 11.6 sec (9.3-11.8)
[2023-11-04 12:50] LABS: Band Neutrophils % (manual) 2; Eosinophils % (manual) 6 (0-7); Lymphocytes % (manual) 18 (10.0-50.0); Monocytes % (manual) 8 (0-12)
[2023-11-04 12:51] LABS: Platelet Estimate Adequate
[2023-11-04 14:47] LABS: Basophils # (auto) 0.1 10 ^3/uL (0-0.2); Basophils % (auto) 1.1 % (0.0-2.0); Eosinophils # (auto) 0.7 10 ^3/uL (0-0.8); Eosinophils % (auto) 8.2 % (0.0-7.0); Hematocrit 29.4 % (41.0-53.0); Hemoglobin 10.1 g/dL (13.5-17.5); Lymphocytes # (auto) 0.7 10 ^3/uL (0.4-5.4); Lymphocytes % (auto) 8.9 % (10.0-50.0); Mean Corpuscular Hemoglobin 32.8 pg (28.0-32.0); Mean Corpuscular Hgb Conc. 34.2 g/dL (32.0-36.0); Monocytes # (auto) 0.5 10 ^3/uL (0-1.3); Monocytes % (auto) 6.1 % (0.0-12.0); Neutrophils % (auto) 75.7 % (37.0-80.0); Red Blood Cells 3.07 10^6/uL (4.5-5.90); Red Cell Distribution Width 15.8 % (11.8-14.3)
[2023-11-04 14:48] LABS: Basophils # (auto) 0.1 10 ^3/uL (0-0.2); Basophils % (auto) 0.9 % (0.0-2.0); Eosinophils # (auto) 0.7 10 ^3/uL (0-0.8); Eosinophils % (auto) 6.3 % (0.0-7.0); Hematocrit 32.3 % (41.0-53.0); Hemoglobin 10.9 g/dL (13.5-17.5); Lymphocytes # (auto) 0.8 10 ^3/uL (0.4-5.4); Lymphocytes % (auto) 7.3 % (10.0-50.0); Mean Corpuscular Hemoglobin 32.5 pg (28.0-32.0); Mean Corpuscular Hgb Conc. 33.7 g/dL (32.0-36.0); Mean Corpuscular Volume 96.5 fL (80.0-100.0); Monocytes # (auto) 0.6 10 ^3/uL (0-1.3); Monocytes % (auto) 5.6 % (0.0-12.0); Neutrophils # (auto) 8.3 10 ^3/uL (1.6-8.6); Neutrophils % (auto) 79.9 % (37.0-80.0); Nucleated Red Blood Cells % 0.2 %; Red Blood Cells 3.35 10^6/uL (4.5-5.90); Red Cell Distribution Width 15.9 % (11.8-14.3); White Blood Cell 10.4 10^3/uL (4.4-10.8)
[2023-11-04 16:00] LABS: Lipase 64 U/L (12-53)
[2023-11-04 16:01] LABS: Amylase 98 U/L (30-118)
[2023-11-04 19:04] LABS: Base Excess 2.6 mmol/L (-2.0-2.0)
[2023-11-04] MEDS ORDERED: MORPHINE SULFATE INJ 2 MG/ml SYRG IV PRN (21:30)
[2023-11-04] MEDS: MORPHINE SULFATE INJ 2 MG/ml SYRG IV PRN (22:47)
== END 2023-11-05 02:45 | DRG 207 ==
LOC: ER 17:09 → EDBD 17:09 → TELE 18:51 → ICU WEST 18:51
PROVIDERS: ADMIT Internal Medicine; ATTEND Specialist
PROC: 5A1955Z Respiratory Ventilation, Greater than 96 Consecutive Hours (ICD-10-PCS; principal; 2023-10-22)
PROC: 0BH17EZ Insertion of Endotracheal Airway into Trachea, Via Natural or Artificial Opening (ICD-10-PCS; 2023-10-22)
PROC: 5A12012 Performance of Cardiac Output, Single, Manual (ICD-10-PCS; 2023-10-22)
PROC: 02HV33Z Insertion of Infusion Device into Superior Vena Cava, Percutaneous Approach (ICD-10-PCS; 2023-10-22)
PROC: 02HV33Z Insertion of Infusion Device into Superior Vena Cava, Percutaneous Approach (ICD-10-PCS; 2023-10-22)
PROC: 5A1D70Z Performance of Urinary Filtration, Intermittent, Less than 6 Hours Per Day (ICD-10-PCS; 2023-10-23)
PROC: 5A1D70Z Performance of Urinary Filtration, Intermittent, Less than 6 Hours Per Day (ICD-10-PCS; 2023-10-25)
PROC: 5A1D70Z Performance of Urinary Filtration, Intermittent, Less than 6 Hours Per Day (ICD-10-PCS; 2023-10-27)
PROC: 5A1D70Z Performance of Urinary Filtration, Intermittent, Less than 6 Hours Per Day (ICD-10-PCS; 2023-10-30)
PROC: 5A1D70Z Performance of Urinary Filtration, Intermittent, Less than 6 Hours Per Day (ICD-10-PCS; 2023-11-01)
PROC: 5A1D70Z Performance of Urinary Filtration, Intermittent, Less than 6 Hours Per Day (ICD-10-PCS; 2023-11-03)
PROC: 4A133B1 Monitoring of Arterial Pressure, Peripheral, Percutaneous Approach (ICD-10-PCS; 2023-11-04)
DX: J15.1 Pneumonia due to Pseudomonas (principal); G92.8 Other toxic encephalopathy; J96.01 Acute respiratory failure with hypoxia; N18.6 End stage renal disease; G93.6 Cerebral edema; I21.A1 Myocardial infarction type 2; I13.2 Hypertensive heart and chronic kidney disease with heart failure and with stage 5 chronic kidney disease, or end stage renal disease; G93.1 Anoxic brain damage, not elsewhere classified; E66.2 Morbid (severe) obesity with alveolar hypoventilation; Z16.24 Resistance to multiple antibiotics; I46.9 Cardiac arrest, cause unspecified; D63.1 Anemia in chronic kidney disease; E11.22 Type 2 diabetes mellitus with diabetic chronic kidney disease; E87.5 Hyperkalemia; I16.0 Hypertensive urgency; F17.200 Nicotine dependence, unspecified, uncomplicated; G25.3 Myoclonus; E78.5 Hyperlipidemia, unspecified; E87.6 Hypokalemia; R00.1 Bradycardia, unspecified; K21.9 Gastro-esophageal reflux disease without esophagitis; I50.9 Heart failure, unspecified; K80.20 Calculus of gallbladder without cholecystitis without obstruction; G89.29 Other chronic pain; K76.0 Fatty (change of) liver, not elsewhere classified; E11.649 Type 2 diabetes mellitus with hypoglycemia without coma; M54.9 Dorsalgia, unspecified; Z99.2 Dependence on renal dialysis; Z98.61 Coronary angioplasty status; Z79.899 Other long term (current) drug therapy; Z79.84 Long term (current) use of oral hypoglycemic drugs; Z89.512 Acquired absence of left leg below knee; Z68.32 Body mass index [BMI] 32.0-32.9, adult; Z79.02 Long term (current) use of antithrombotics/antiplatelets
CPT/HCPCS: 36415; 36556; 36600; 70450; 71045; 71275; 74176; 76700; 76937; 80048; 80053; 80202; 80307; 80329; 82150; 82248; 82550; 82553; 82728; 82805; 82962; 82977; 83540; 83550; 83605; 83615; 83690; 83735; 83930; 84100; 84484; 85025; 85379; 85610; 85730; 86704; 86706; 86708; 86803; 86850; 86900; 86901; 87040; 87070; 87077; 87081; 87086; 87186; 87205; 87340; 90935; 92950; 93005; 93306; 93970; 94002; 94003; 94640; 95819; 96365; 99291; A4618; C9113; G0378; J1642; J1815; J3480; J3490; J7042; J7060